=== PATIENT | male | born 1965 | race African-American/Black ===

== ENCOUNTER 2016-08-26 17:18 | Emergency (ER) | payer OTHER, MEDICAID ==
[~2016-08-26] VITALS: Ht 170.2 cm; Wt 104.3 kg
[~2016-08-26 17:18] MED LIST: NKM
[2016-08-26 17:35] VITALS: BP 141/87
[2016-08-26] MEDS ORDERED: IBUPROFEN600 MG ORAL (17:37)
[2016-08-26] MEDS ORDERED: Ketorolac 30mg Inj IM ONE (17:45)
--- NOTE | 2016-08-27 18:46 | Emergency Room Report ---
History of Present Illness General Chief Complaint: General Complaint Source: Patient, EMS Present Illness HPI 51-year-old male presents to ED for evaluation. Patient brought in by EMS. Patient is homeless. Per EMS patient is complaining of left arm numbness. Patient states he's been having the numbness on and off for many years now. States it is worse when he wakes up in the morning and then slowly resolves as the day goes on. Denies any numbness at this time. Denies any chest pain or shortness of breath. Denies any facial droop or with weakness. No other aggravating relieving factors. Denies any other associated symptoms Allergies: Coded Allergies: PSEUDOEPHEDRINE (Unverified Allergy, Unknown, 08/26/16) TERFENADINE (Unverified Allergy, Unknown, 08/26/16) Patient History Past Medical History: psych hx Past Surgical History: none Pertinent Family History: none Social History: Denies: alcohol use, drug use, smoking Immunizations: UTD Reviewed Nursing Documentation: PMH: Agreed, PSxH: Agreed Nursing Documentation-PMH Past Medical History: No History, Except For History Of Psychiatric Problem: Yes - Bipolar depression Review of Systems All Other Systems: negative except mentioned in HPI Physical Exam Vital Signs Date Time Temp Pulse Resp B/P Pulse Ox O2 Delivery O2 Flow Rate FiO2 08/26/16 17:09 99.1 92 14 144/90 96 Room Air Sp02 EP Interpretation: reviewed, normal General Appearance: no apparent distress, alert, GCS 15, non-toxic Head: normocephalic, atraumatic Eyes: bilateral eye PERRL, bilateral eye normal inspection ENT: hearing grossly normal, normal pharynx, no angioedema, normal voice Neck: full range of motion, supple/symm/no masses Respiratory: chest non-tender, lungs clear, normal breath sounds, speaking full sentences Cardiovascular #1: regular rate, rhythm, no edema Cardiovascular #2: 2+ carotid (R), 2+ carotid (L), 2+ radial (R), 2+ radial (L) , 2+ dorsalis pedis (R), 2+ dorsalis pedis (L) Gastrointestinal: normal bowel sounds, non tender, soft, non-distended, no guarding, no rebound Rectal: deferred Genitourinary: normal inspection, no CVA tenderness Musculoskeletal: back normal, gait/station normal, normal range of motion, non- tender, calf tenderness Neurologic: alert, oriented x3, responsive, 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 No numbness at this time Differential-TIA, CVA, neuropathy, radiculopathy Patient placed on stretcher. After initial history, physical exam reveals a middle-age male in no acute distress. I performed a complete neurological exam which shows no signs of motor or sensory deficits. All cranial nerves intact. No signs of facial droop or slurred speech. Vital stable. I am not suspecting CVA or TIA. Symptoms are chronic for several years now. Given the timing of symptoms in the morning that slowly resolve I am suspecting cervical radiculopathy Patient complaining of some pain. Given Toradol in ED. Pain resolved Patient given alf referral information Diagnosis-cervical radiculopathy Stable and discharged to alf. Followup with PMD. Return to ED if symptoms recur or worsen Last Vital Signs Date Time Temp Pulse Resp B/P Pulse Ox O2 Delivery O2 Flow Rate FiO2 08/26/16 17:52 98.8 89 15 141/87 97 Room Air Status: improved Disposition: HOME, SELF-CARE Condition: Stable Scripts Ibuprofen* (MOTRIN*) 600 Mg Tablet 600 MG ORAL Q8H Y for For Pain, #30 TAB 0 Refills Prov: ZACH LIGHT M.D. 08/26/16 Referrals: NOT CHOSEN IPA/,REFERRING (PCP) Patient Instructions: Radicular Pain ZACH LIGHT M.D. Aug 27, 2016 18:46
== END 2016-08-26 17:53 | disposition home or self-care (01) ==
LOC: EDBD 17:18 → EMR 17:33
DX: M54.12 Radiculopathy, cervical region (principal); F31.9 Bipolar disorder, unspecified; Z88.8 Allergy status to other drugs, medicaments and biological substances; Z59.0 Homelessness
CPT/HCPCS: 96372; 99283